=== PATIENT | male | born 1975 | race Two or more races ===

== ENCOUNTER 2017-07-05 03:55 | Emergency (ER) | payer OTHER ==
[~2017-07-05] VITALS: Ht 180.3 cm; Wt 76.2 kg
[2017-07-05 04:00] VITALS: BP 141/91
--- NOTE | 2017-07-05 04:19 | PHYS DOC ---
General Chief Complaint: EYE PROBLEMS Stated Complaint: LEFT EYE ISSUE Time Seen by MD: 04:15 Source: patient Exam Limitations: no limitations Problems: History of Present Illness Initial Comments Patient is a 42-year-old male who comes to the ED complaining of pinkeye. Patient states he awoke this morning with his left eye matted shut with green discharge. He states that he's had itching and burning no foreign body sensation and no actual eye pain. When his eye starts draining he has blurred vision otherwise he has had no vision changes. No pain with extraocular motion, he does not wear corrective lenses or contacts. He typically follows at [facility] he is normally healthy and takes no daily prescription medications. Timing/Duration: abrupt Severity: moderate Location: eye (L) Prearrival Treatment: other Modifying Factors: improves with other Associated Symptoms: other Allergies: Coded Allergies: No Known Drug Allergies (Unverified , 07/05/17) Past Medical History Medical History: no pertinent history Surgical History: noncontributory Social History Smoker: non-smoker Alcohol: none Drugs: none Constitutional: denies chills, denies diaphoresis, denies fever, denies malaise Eyes: see HPI Ears: denies dizziness, denies pain Nose: denies clots, denies congestion Throat: denies pain, denies swelling, denies neck stiffness, denies painful swallowing, denies difficulty with fluids Respiratory: denies cough, denies shortness of breath Cardiovascular: denies chest pain, denies palpitations Gastrointestinal: denies nausea, denies vomiting Musculoskeletal: denies back pain, denies joint swelling, denies neck pain Neurological: denies headache, denies numbness, denies paresthesia Physical Exam General Appearance: WD/WN, no apparent distress Eyes: right eye normal inspection, left eye other (conjunctivae injected with yellowish discharge no periorbital swelling or pain with extraocular motion), bilateral eye PERRL, bilateral eye EOMI Nose: normal inspection Neck: non-tender, supple Cardiovascular/Respiratory: normal peripheral pulses, no respiratory distress 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 Aggressive handwashing and linen/towel changes daily. Prescription: Polytrim Follow-up with your doctor in 7-10 days for recheck. Return to ED with new or changing symptoms. MAMIE CHIANG DO Jul 05, 2017 04:19
[2017-07-05] MEDS ORDERED: POLY10DR EACHEYE (04:20)
[2017-07-05] MEDS ORDERED: POLYMYXIN/TRIMETHOPRIM OPHTH SOLUTION 10ML BOTTLE. OS ONE (04:30)
== END 2017-07-05 04:27 | disposition home or self-care (01) ==
LOC: ER 03:55
DX: H10.9 Unspecified conjunctivitis (principal)
CPT/HCPCS: 99283

== ENCOUNTER 2017-10-19 20:51 | Emergency (ER) | payer OTHER ==
[~2017-10-19] VITALS: Ht 172.7 cm; Wt 78.1 kg
[~2017-10-19 20:51] MED LIST: POLY10DR EACHEYE
--- NOTE | 2017-10-19 22:13 | PHYS DOC ---
Past History Past Medical History: No Pertinent History Past Surgical History: No Surgical History Alcohol Use: Occasionally Drug Use: None Adult General Chief Complaint Chief Complaint: EYE PROBLEMS HPI HPI 42-year-old male presents with bilateral red eyes. The patient first notices eyes were red and itching this morning. He did not have any purulent discharge or matting. Throughout the day, he has had increased pruritus and they seem more red to him. He has not been around anybody with conjunctivitis as far as he knows. He has tried Visine drops which do not help. Denies any other concerns. Review of Systems Review of Systems Constitutional: Denies fever or chills [] Eyes: Denies change in visual acuity, or eye pain. Has bilateral redness and pruritis [] HENT: Denies nasal congestion or sore throat [] Respiratory: Denies cough or shortness of breath [] Cardiovascular: No additional information not addressed in HPI [] GI: Denies abdominal pain, nausea, vomiting, bloody stools or diarrhea [] : Denies dysuria or hematuria [] Musculoskeletal: Denies back pain or joint pain [] Integument: Denies rash or skin lesions [] Neurologic: Denies headache, focal weakness or sensory changes [] Endocrine: Denies polyuria or polydipsia [] All other systems were reviewed and found to be within normal limits, except as documented in this note. Allergies Allergies Allergies Coded Allergies Type Severity Reaction Last Updated Verified No Known Drug Allergies 07/05/17 No Physical Exam Physical Exam Constitutional: Well developed, well nourished, no acute distress, non-toxic appearance. [] HENT: Normocephalic, atraumatic, bilateral external ears normal, oropharynx moist, no oral exudates, nose normal. [] Eyes: PERRLA, EOMI, bilateral conjunctiva erythematous, sclera erythematous, no discharge. [] Neck: Normal range of motion, no tenderness, supple, no stridor. [] Cardiovascular:Heart rate regular rhythm, no murmur [] Lungs & Thorax: Bilateral breath sounds clear to auscultation [] Abdomen: Bowel sounds normal, soft, no tenderness, no masses, no pulsatile masses. [] Skin: Warm, dry, no erythema, no rash. [] Back: No tenderness, no CVA tenderness. [] Extremities: No tenderness, no cyanosis, no clubbing, ROM intact, no edema. [] Neurologic: Alert and oriented X 3, normal motor function, normal sensory function, no focal deficits noted. [] Psychologic: Affect normal, judgement normal, mood normal. [] EKG EKG [] Radiology/Procedures Radiology/Procedures [] Impressions: The patient has bilateral conjunctivitis, likely viral or allergic. I sent bacterial infection. I advised patient to try antihistamines and/or antihistamine eyedrops. Course & Med Decision Making Course & Med Decision Making Pertinent Labs and Imaging studies reviewed. (See chart for details) [] Dragon Disclaimer Dragon Disclaimer This electronic medical record was generated, in whole or in part, using a voice recognition dictation system. Departure Departure: Referrals: PCP,UNKNOWN (PCP) SAMUEL CARVAJAL DO October 19, 2017 22:13
[2017-10-19 22:23] VITALS: BP 135/96
== END 2017-10-19 22:23 | disposition home or self-care (01) ==
LOC: ER 20:51
DX: H10.89 Other conjunctivitis (principal)
CPT/HCPCS: 99281

== ENCOUNTER 2017-10-30 19:01 | Emergency (ER) | payer OTHER ==
[~2017-10-30] VITALS: Ht 172.7 cm; Wt 77.9 kg
[2017-10-30 19:01] VITALS: BP 145/65
--- NOTE | 2017-10-30 19:06 | ED.ADGEN ---
Past History Past Medical History: No Pertinent History Past Surgical History: No Surgical History Alcohol Use: Occasionally Drug Use: None Adult General Chief Complaint Chief Complaint ".. I coughing all the time.. I think it is allergies... I am here for [facility] [place] course...".. " It gotten really worse the last few days.. 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 Cough is non-productive. Pt. also complaining of rhinorrhea.and congestion. Pt. had no fevers.. No recent travel or ill contacts. Pt. up to date with vaccinations. Normally healthy. Pt. follows at [facility] for care. Pt. has had problems in past with seasonal allergies. Review of Systems Review of Systems Constitutional: Denies fever or chills [] Eyes: Denies change in visual acuity, redness, or eye pain [] HENT: Hx. nasal congestion and rhinorrhea Respiratory: Hx. of non-productive cough and wheezing. Cardiovascular: No additional information not addressed in HPI [] GI: Denies abdominal pain, nausea, vomiting, bloody stools or diarrhea [] : Denies dysuria or hematuria [] Musculoskeletal: Denies back pain or joint pain [] Integument: Denies rash or skin lesions [] Neurologic: Denies headache, focal weakness or sensory changes [] Endocrine: Denies polyuria or polydipsia [] All other systems were reviewed and found to be within normal limits, except as documented in this note. Family History Family History Non-contributory Current Medications Current Medications Current Medications Medications (Trade) Dose Ordered Sig/Graciela Start Time Stop Time Status Last Admin Dose Admin Albuterol Sulfate (Ventolin Hfa) 2 puff 1X ONCE 10/30/17 19:30 10/30/17 19:36 DC 10/30/17 19:44 2 PUFF Prednisone (Prednisone) 50 mg 1X ONCE 10/30/17 19:30 10/30/17 19:36 DC 10/30/17 19:44 50 MG Allergies Allergies Allergies Coded Allergies Type Severity Reaction Last Updated Verified No Known Drug Allergies 07/05/17 No Physical Exam Physical Exam Constitutional: Well developed, well nourished, no acute distress, non-toxic appearance. [] HENT: Normocephalic, atraumatic, bilateral external ears normal, oropharynx moist, no oral exudates, nose rhinorrhea and congestion. Eyes: PERRLA, EOMI, conjunctiva mild injection, no discharge. [] Neck: Normal range of motion, no tenderness, supple, no stridor. [] Cardiovascular:Heart rate regular rhythm, no murmur [] Lungs & Thorax: Bilateral breath sounds equal with few scattered wheezing on auscultation [] Abdomen: Bowel sounds normal, soft, no tenderness, no masses, no pulsatile masses. [] Skin: Warm, dry, no erythema, no rash. [] Back: No tenderness, no CVA tenderness. [] Extremities: No tenderness, no cyanosis, no clubbing, ROM intact, no edema. [] Neurologic: Alert and oriented X 3, normal motor function, normal sensory function, no focal deficits noted. [] Psychologic: Affect normal, judgement normal, mood normal. [] Current Patient Data Vital Signs Vital Signs Date Time Temp Pulse Resp B/P (MAP) Pulse Ox O2 Delivery O2 Flow Rate FiO2 10/30/17 19:01 97.8 80 18 99 Room Air EKG EKG [] Radiology/Procedures Radiology/Procedures [] Course & Med Decision Making Course & Med Decision Making Pertinent Labs and Imaging studies reviewed. (See chart for details). Take Claritin D twice a day. Prednisone 50 daily x 5 days. Use MDI two puffs four times a day. Return if any concerns. Follow up with [facility]. [] Final Impression Final Impression 1. Seasonal Allergies 2. Reactive Airway[] Dragon Disclaimer Dragon Disclaimer This electronic medical record was generated, in whole or in part, using a voice recognition dictation system. SHANTAL REVELES MD October 30, 2017 19:06
[2017-10-30] MEDS ORDERED: ALBUTEROL SULFATE 8GM INHALER. INH ONE (19:30)
[2017-10-30] MEDS ORDERED: predniSONE 10 MG TABLET PO ONE (19:30)
[2017-10-30] MEDS ORDERED: PRED50TA PO (19:36)
[2017-10-30] MEDS ORDERED: ALBU18HF IH (19:36)
[2017-10-30] MEDS ORDERED: LORA1TAB47 PO (19:36)
== END 2017-10-30 19:50 | disposition home or self-care (01) ==
LOC: ER 19:01
DX: J45.909 Unspecified asthma, uncomplicated (principal)
CPT/HCPCS: 94640; 99283; J7512; J7613